=== PATIENT | male | born 1985 | race Caucasian/White ===

== ENCOUNTER 2018-09-04 18:39 | Emergency (ER) | payer OTHER ==
[~2018-09-04] VITALS: Ht 185.4 cm; Wt 95.3 kg
[2018-09-04 18:54] VITALS: BP 127/76
[2018-09-04] MEDS ORDERED: FLUORESCEIN OPTH STRIP 0.6 MG OP ONE (20:00)
[2018-09-04] MEDS ORDERED: TETRACAINE HCL/PF 0.5% OPTH 4 ML BTL OP ONE (20:00)
[2018-09-04 20:45] VITALS: BP 128/74
== END 2018-09-04 20:45 | disposition home or self-care (01) ==
LOC: MED 18:39
DX: S05.01XA Injury of conjunctiva and corneal abrasion without foreign body, right eye, initial encounter (principal); F17.210 Nicotine dependence, cigarettes, uncomplicated; W22.8XXA Striking against or struck by other objects, initial encounter; Y93.89 Activity, other specified; Y92.89 Other specified places as the place of occurrence of the external cause; Y99.8 Other external cause status
CPT/HCPCS: 99283

== ENCOUNTER 2018-11-28 17:53 | Emergency (ER) | payer OTHER ==
[~2018-11-28] VITALS: Ht 190.5 cm; Wt 93.7 kg
[2018-11-28 18:00] VITALS: BP 118/73
--- NOTE | 2018-11-28 19:03 | NUR ---
PATIENT CALLED FROM LOBBY NO ANSWER PATIENT IS LWBS.
== END 2018-11-28 19:03 | disposition left against medical advice (07) ==
LOC: MED 17:53
DX: R55 Syncope and collapse (principal); Z53.21 Procedure and treatment not carried out due to patient leaving prior to being seen by health care provider; W19.XXXA Unspecified fall, initial encounter; Y93.89 Activity, other specified; Y92.89 Other specified places as the place of occurrence of the external cause; Y99.8 Other external cause status

== ENCOUNTER 2019-03-20 10:53 | Emergency (ER) | payer OTHER ==
[~2019-03-20] VITALS: Ht 185.4 cm; Wt 92.3 kg
[2019-03-20 10:56] VITALS: BP 146/86
--- NOTE | 2019-03-20 11:08 | NUR ---
PATIENT PRESENTS TO ED WITH C/O ABDOMINAL PAIN X 2 DAYS . PT REPORTS DRINKING "A LOT LATELY" AND TAKING ECSTASY AND AFTER THAT HIS STOMACH HAS BEEN HURTING. +NAUSEA, VOMITING AND DIARRHEA. PATIENT STATES PAIN OF 8/10 AT THIS TIME; VSS; PATIENT POSITIONED FOR COMFORT; HOB ELEVATED; BEDRAILS UP X1; BED DOWN. PENDING ER MD EVALUATION.
--- NOTE | 2019-03-20 11:10 | NUR ---
DR ROBLES AT BEDSIDE EVALUATING PT.
[2019-03-20] MEDS ORDERED: ONDANSETRON 4 MG/2 ML VIAL IVP ONE (11:15)
[2019-03-20] MEDS ORDERED: NACL 0.9% 1,000 ML IV ONE (11:15)
[2019-03-20] MEDS ORDERED: KETOROLAC 30 MG/ML VIAL IVP ONE (11:15)
[2019-03-20 11:34] LABS: BASOPHILS # (AUTO) 0.1 K/uL (0.00-0.22); BASOPHILS % (AUTO) 0.5 % (0.0-2.0); EOSINOPHILS # (AUTO) 0.1 K/uL (0-0.4); EOSINOPHILS % (AUTO) 0.6 % (0.0-4.0); HEMATOCRIT 43.7 % (36-52); HEMOGLOBIN 14.7 g/dL (12.0-18.0); LYMPHOCYTES # (AUTO) 1.3 K/uL (2.0-11.5); LYMPHOCYTES % (AUTO) 13.2 % (20.5-51.1); MEAN CORPUSCULAR HEMOGLOBIN 31 pg (27-31); MEAN CORPUSCULAR HGB CONC 34 g/dL (33-37); MEAN CORPUSCULAR VOLUME 91.6 fL (80-94); MONOCYTES # (AUTO) 0.7 K/uL (0.8-1.0); NEUTROPHILS # (AUTO) 7.6 K/uL (1.8-7.7); NEUTROPHILS % (AUTO) 78.7 % (42.2-75.2); PLATELET COUNT (AUTO) 302 K/uL (140-450); RED BLOOD CELL COUNT(AUTO) 4.77 MIL/uL (4.20-6.10); RED CELL DISTRIBUTION WIDTH 12.9 % (11.6-13.7); WHITE BLOOD COUNT (AUTO) 9.7 K/uL (4.8-10.8)
[2019-03-20 11:46] LABS: ALBUMIN 3.7 g/dL (3.4-5.0); ANION GAP 12.4 (8-16); CARBON DIOXIDE 28.4 mmol/L (21-32); CREATININE 1.2 mg/dL (0.7-1.3); POTASSIUM 3.8 mmol/L (3.5-5.1); TOTAL BILIRUBIN 0.8 mg/dL (0.0-1.0)
[2019-03-20 12:51] VITALS: BP 139/89
--- NOTE | 2019-03-20 12:51 | NUR ---
Patient discharged with v/s stable. Written and verbal after care instructions given and explained. Patient alert, oriented and verbalized understanding of instructions. Ambulatory with steady gait. All questions addressed prior to discharge. ID band removed;IV removed. Patient advised to follow up with PMD. Rx of Tramadol and zofran given. Patient educated on indication of medication including possible reaction and side effects. Opportunity to ask questions provided and answered.
== END 2019-03-20 12:51 | disposition home or self-care (01) ==
LOC: MED 10:53
DX: A08.4 Viral intestinal infection, unspecified (principal)
CPT/HCPCS: 36415; 74022; 80053; 81002; 83690; 85025; 96361; 96374; 96375; 99284; J1885; J2405; J7030

== ENCOUNTER 2019-03-24 02:53 | Observation (INO) | payer OTHER ==
[~2019-03-24] VITALS: Ht 185.4 cm; Wt 89.4 kg
[2019-03-24 03:00] VITALS: BP 142/80
--- NOTE | 2019-03-24 03:03 | NUR ---
PT AMBLATED TO BED 4.
[2019-03-24] MEDS ORDERED: NACL 0.9% 1,000 ML IV ONE (03:06)
[2019-03-24] MEDS ORDERED: ONDANSETRON 4 MG/2 ML VIAL IVP ONE (03:10)
[2019-03-24] MEDS ORDERED: KETOROLAC 30 MG/ML VIAL IVP ONE (03:10)
--- NOTE | 2019-03-24 03:10 | NUR ---
PT BIB GIRLFRIEND C/O ABD PAIN, N/V/D. PT STATES SYMPTOMS STARTED 4 DAYS AGO, PT WAS SEEN AT [facility] ABOUT 2 DAYS AGO, PT STATES SYMPTOMS HAVE NOT GONE AWAY AND HAVE GOT WORSE. PT STATES 10 ABD PAIN THROUGH OUT, +TENDERNESS; BOWEL SOUNDS ACTIVE THROUGH OUT. SKIN WARM DRY AND INTACT. PT SPEAKING IN CLEAR AND COMPLETE SENTENCES, PT ACTING APPROPRIALTY. DENIES TRAUMA OR INJURY. PT STATES HE DRINK ABOUT A PINT OF VODKA MIXED W/ REDBULL EVERYDAY. --EMESIS AND DIARHHEA PRODUCTION AFTER EATING, NO BLOOD IN STOOL OR EMESIS NOTED BY PT. PT IN GOWN, IN BED; BED IN LOWER LOCKED POSITION, BEDRAILS UP X1. PT ATTACHED TO BEDSIDE SLATE HANDLER. ERMD AWARE OF PT STATUS. PMH: DENIES
[2019-03-24 03:27] LABS: BASOPHILS # (AUTO) 0.1 K/uL (0.00-0.22); BASOPHILS % (AUTO) 0.8 % (0.0-2.0); EOSINOPHILS % (AUTO) 0.4 % (0.0-4.0); HEMATOCRIT 43.8 % (36-52); HEMOGLOBIN 14.8 g/dL (12.0-18.0); LYMPHOCYTES # (AUTO) 1.6 K/uL (2.0-11.5); LYMPHOCYTES % (AUTO) 17.4 % (20.5-51.1); MEAN CORPUSCULAR HEMOGLOBIN 31 pg (27-31); MEAN CORPUSCULAR HGB CONC 34 g/dL (33-37); MEAN CORPUSCULAR VOLUME 91.1 fL (80-94); MONOCYTES # (AUTO) 0.8 K/uL (0.8-1.0); MONOCYTES % (AUTO) 8.6 % (1.7-9.3); NEUTROPHILS # (AUTO) 6.7 K/uL (1.8-7.7); NEUTROPHILS % (AUTO) 72.8 % (42.2-75.2); PLATELET COUNT (AUTO) 315 K/uL (140-450); RED BLOOD CELL COUNT(AUTO) 4.81 MIL/uL (4.20-6.10); RED CELL DISTRIBUTION WIDTH 12.7 % (11.6-13.7); WHITE BLOOD COUNT (AUTO) 9.2 K/uL (4.8-10.8)
[2019-03-24 03:32] LABS: CARBON DIOXIDE 29.1 mmol/L (21-32); CREATININE 1.2 mg/dL (0.7-1.3); POTASSIUM 4.1 mmol/L (3.5-5.1)
[2019-03-24 03:38] LABS: ALBUMIN 3.8 g/dL (3.4-5.0); TOTAL BILIRUBIN 0.9 mg/dL (0.0-1.0)
--- NOTE | 2019-03-24 03:52 | NUR ---
PT BACK IN BED FROM CT, PT STATES PAIN IS STILL 06/28. ERMD AWARE.
[2019-03-24] MEDS ORDERED: MORPHINE SULFATE 2 MG/ML SYR IVP ONE (03:55)
--- NOTE | 2019-03-24 03:55 | NUR ---
PT ENCOURAGED TO PROVIDE URINE SAMPLE, PT STATES HE CAN NOT PEE AT THIS TIME.
--- NOTE | 2019-03-24 04:00 | NUR ---
PT STATES NAUSEA HAS DECREASED, PAIN IS STILL 9/10 AT THIS TIME. ERMD AWARE, ORDERS TO FOLLOW.
--- NOTE | 2019-03-24 04:20 | NUR ---
REPORT PROVIDED TO EVONNE FROM [facility], INSURANCE WOULD LIKE TO ADMIT PT UNDER OBSERVATION. CALL TRANSFERRED TO DR. ROBLES.
[2019-03-24] MEDS ORDERED: NACL 0.9% 1,000 ML IV SCH ×3 (04:33→19:11)
[2019-03-24] MEDS ORDERED: ONDANSETRON 4 MG/2 ML VIAL IM/IVP PRN ×2 (04:35→05:00)
[2019-03-24] MEDS ORDERED: DOCUSATE SODIUM 100 MG GELCAP PO PRN ×2 (04:35→05:00)
[2019-03-24] MEDS ORDERED: MORPHINE SULFATE 2 MG/ML SYR IVP PRN (04:35)
[2019-03-24] MEDS ORDERED: HYDROcodone/APAP 5/325 MG 1 TAB TAB PO PRN (04:35)
[2019-03-24] MEDS ORDERED: ACETAMINOPHEN 325 MG TAB PO PRN ×2 (04:35→05:00)
[2019-03-24 05:00] VITALS: BP 131/90
--- NOTE | 2019-03-24 05:00 | NUR ---
REPORT RECEIVED FROM ED NURSE AT BEDSIDE. PT IN STABLE CONDITION. AAOX4. INTRODUCED SELF TO PT. BOARD UPDATED. NO COMPLAINTS OF PAIN. NO SOB. AFEBRILE. IV SITE L AC 20G RUNNING NS@100ML/HR PATENT AND INTACT. SKIN WARM, DRY, AND INTACT WITH NO OPEN WOUNDS. PT IS AMBULATORY. BED LOCKED IN LOW POSITION. CALL NORTH WITHIN REACH. SAFETY PRECAUTION IN PLACE. ALL NEEDS MET AT THIS TIME.
--- NOTE | 2019-03-24 05:00 | NUR ---
Patient will be admitted to care of Dr. Simpson. Admited to Med-Surg. Patient went to room 112-B via [facility] by RN, patient acting appropriatly; no changes to basline. Belongings list completed. Report to EMANUEL Colon.
--- NOTE | 2019-03-24 05:07 | NUR ---
NS HUNG@100ML/HR.
[2019-03-24] MEDS: PANTOPRAZOLE 40 MG TABEC PO SCH (05:51)
--- NOTE | 2019-03-24 05:51 | NUR ---
PROTONIX GIVEN PO. PT TOLERATED WELL.
[2019-03-24 06:28] LABS: MAGNESIUM 2.1 mg/dL (1.8-2.4); PHOSPHORUS 3.4 mg/dL (2.5-4.9); THYROID STIMULATING HORMONE 0.5 uIU/mL (0.34-3.74)
[2019-03-24] MEDS: HYDROcodone/APAP 5/325 MG 1 TAB TAB PO PRN ×3 (06:45→21:13)
--- NOTE | 2019-03-24 06:45 | NUR ---
NORCO GIVEN FOR BREAKTHROUGH PAIN. PT TOLERATED WELL.
--- NOTE | 2019-03-24 07:28 | NUR ---
REPORT GIVEN TO AM NURSE AT BEDSIDE. PT IN STABLE CONDITION.
--- NOTE | 2019-03-24 07:29 | NUR ---
RECEIVED ENDORSEMENT FROM INSURANCE VERIFICATION CLERK NURSE. PATIENT IS AAOX4, MAURITANIAN SPEAKING. RESPIRATIONS ARE EVEN AND UNLABORED ON ROOM AIR. LEFT AC 20 G INTACT, PATENT, AND INFUSING IVF. PATIENT DENIES ANY PAIN AT THIS TIME. PLAN OF CARE WAS REVIEWED WITH PATIENT. PATIENT VERBALIZED UNDERSTANDING. SAFETY MEASURES IN PLACE, CALL LIGHT WITHIN REACH.
[2019-03-24 08:00] VITALS: BP 149/83
--- NOTE | 2019-03-24 08:00 | NUR ---
PATIENT REFUSED SCDS AT THIS TIME, STATED THAT HE JUST WANTED TO SLEEP.
--- NOTE | 2019-03-24 08:02 | NUR ---
PATIENT HAS BEEN SCREENED AND CATEGORIZED HIGH NUTRITION RISK. PATIENT WILL BE SEEN WITHIN 1-2 DAYS OF ADMISSION. 03/24/19-03/25/[address]
[2019-03-24] MEDS ORDERED: MULTIVITAMIN-12 10 ML, THIAMINE 100 MG, MAGNESIUM SULFATE 50% 2,000 MG, FOLIC ACID 1 MG... IV SCH ×5 (09:00)
[2019-03-24] MEDS ORDERED: DEXT 5% / NACL 0.45% 1,000 ML IV SCH ×2 (09:10→19:11)
[2019-03-24] MEDS: chlordiazePOXIDE 25 MG CAP PO SCH ×3 (09:26→17:05)
--- NOTE | 2019-03-24 09:30 | NUR ---
ADMINISTERED SCHEDULED MEDICATIONS. REMINDED PATIENT THAT URINE AND STOOL SAMPLE IS NEEDED. PATIENT VERBALIZED UNDERSTANDING. DENIES PAIN AT THIS TIME. NO OTHER NEEDS AT THIS TIME.
[2019-03-24] MEDS: MORPHINE SULFATE 2 MG/ML SYR IVP PRN (12:12)
--- NOTE | 2019-03-24 12:15 | NUR ---
ADMINISTERED PRN MORPHINE IVP FOR PAIN 05/28. PATIENT C/O NAUSEA, ADMINISTERED ZOFRAN IVP. ADMINISTERED SCHEDULED MEDICATIONS. NO OTHER NEEDS AT THIS TIME. WILL CONTINUE TO MONITOR. Addendum: 03/24/19 at 1453 by Linda Syed RN WILLIAMS IS PRESENT AT THE BEDSIDE.
[2019-03-24 14:17] LABS: APPEARANCE,URINE CLEAR (CLEAR); BILIRUBIN,URINE 1+ (NEGATIVE); BLOOD, URINE NEGATIVE (NEGATIVE); COLOR,URINE YELLOW (YELLOW); LEUKOCYTE ESTERASE ,URINE NEGATIVE (NEGATIVE); NITRITE, URINE NEGATIVE (NEGATIVE); UGLUCOSE NEGATIVE (NEGATIVE)
[2019-03-24 14:24] LABS: BARBITURATE, URINE NEG. ng/ml (NEG <=200); BENZODIAZEPINE, URINE NEG. ng/mL (NEG <=200); CANNABINOID, URINE POS. ng/mL (NEG <=50); COCAINE, URINE NEG. ng/mL (NEG <=300); OPIATE, URINE POS. ng/mL (NEG <=2000); PHENCYCLIDINE SCREEN,URINE NEG. ng/mL (NEG <=25)
--- NOTE | 2019-03-24 14:43 | NUR ---
03/24/19 RD INITIAL ASSESSMENT COMPLETED PLEASE REFER TO NUTRITION ASSESSMENT UNDER CARE ACTIVITY FOR ESTIMATED NUTRITIONAL NEEDS. 1. CONTINUE NPO MEDICALLY NECESSARY 2. SOBRIETY EDUCATION WAS PROVIDED TO PT 3. RECOMMEND REGULAR DIET WHEN DIET CAN BE ADVANCED 4. RD TO FOLLOW-UP 3-5 DAYS, MODERATE RISK POWER BLOOM RD
--- NOTE | 2019-03-24 14:48 | NUR ---
PATIENT C/O 03/28 PAIN. ADMINISTERED PRN PO NORCO. CHANGED IV PUMP. NO OTHER NEEDS AT THIS TIME.
--- NOTE | 2019-03-24 15:30 | NUR ---
ADMINISTERED SCHEDULED MEDICATIONS. DENIES PAIN AT THIS TIME. NO OTHER NEEDS AT THIS TIME.
[2019-03-24 16:00] VITALS: BP 145/79
--- NOTE | 2019-03-24 19:17 | NUR ---
ENDORSED TO CURBING STONECUTTER NURSE FOR CONTINUITY OF CARE. PATIENT IS STABLE.
--- NOTE | 2019-03-24 19:18 | NUR ---
REPORT RECEIVED FROM AM NURSE AT BEDSIDE. PT IN STABLE CONDITION. AAOX4. INTRODUCED SELF TO PT. BOARD UPDATED. NO COMPLAINTS OF PAIN, PT IS SLEEPING. NO SOB. AFEBRILE. PT IS AMBULATORY. IV SITE L AC 20G RUNNING BANANA BAG@100ML/HR PATENT AND INTACT. SKIN WARM, DRY, AND INTACT WITH NO OPEN WOUNDS. BED LOCKED IN LOW POSITION. CALL NORTH WITHIN REACH. SAFETY PRECAUTION IN PLACE. ALL NEEDS MET AT THIS TIME.
[2019-03-24] MEDS: NACL 0.9% 1,000 ML IV SCH (20:00)
--- NOTE | 2019-03-24 21:13 | NUR ---
NORCO GIVEN FOR 8/10 ABDOMINAL PAIN. PT TOLERATED WELL.
--- NOTE | 2019-03-24 22:30 | NUR ---
PT AWAKE AND ALERT WITH GIRLFRIEND AT BEDSIDE. PT IN STABLE CONDITION.
[2019-03-25] VITALS: BP 142/90
[2019-03-25] MEDS ORDERED: ZOLPIDEM 10 MG TAB PO SCH (01:00)
--- NOTE | 2019-03-25 01:03 | NUR ---
ADMINISTERED AMBIEN MEDICATION ORDERED. PT TOLERATED MEDS WELL. WILL CONTINUE TO MONITOR.
--- NOTE | 2019-03-25 01:30 | NUR ---
PATIENT SLEEPING AT THIS TIME. WILL CONTINUE TO MONITOR.
[2019-03-25] MEDS: MORPHINE SULFATE 2 MG/ML SYR IVP PRN (02:36)
--- NOTE | 2019-03-25 02:36 | NUR ---
CALL LIGHT ANSWERED. PATIENT COMPLAINS OF ABDOMINAL PAIN 05/28. ADMINISTERED MORPHINE. BED IN LOW POSITION, CALL LIGHT WITHIN REACH, SIDE RAILS ARE UP. INSTRUCTED PATIENT TO REPORT ANY SIGNS OF DISTRESS. WILL CONTINUE TO MONITOR PATIENT.
--- NOTE | 2019-03-25 04:00 | NUR ---
PATIENT LYING IN BED APPEARS TO BE SLEEPING UPON CHECKING VITAL SIGNS. REPORTED PAIN MEDICATION TO BE EFFECTIVE. WILL CONTINUE TO MONITOR.
[2019-03-25] MEDS: PANTOPRAZOLE 40 MG TABEC PO SCH (05:44)
--- NOTE | 2019-03-25 05:45 | NUR ---
PATIENT ASLEEP. WOKE UP FOR MEDICATION ADMINISTRATION. MEDICATION TOLERATED WELL.
--- NOTE | 2019-03-25 07:26 | NUR ---
REPORT GIVEN TO AM NURSE AT BEDSIDE. PT IN STABLE CONDITION.
--- NOTE | 2019-03-25 07:27 | NUR ---
RECEIVED ENDORSEMENT FROM BUSINESS PROCESS MODELER NURSE. PATIENT IS AAOX4, NEPALESE SPEAKING. RESPIRATIONS ARE EVEN AND UNLABORED ON ROOM AR. DENIES ANY PAIN AT THIS TIME. LEFT AC 20 G INTACT, PATENT, AND INFUSING IVF. PLAN OF CARE WAS REVIEWED WITH PATIENT. PATIENT VERBALIZED UNDERSTANDING. SAFETY MEASURES IN PLACE, CALL LIGHT WITHIN REACH.
[2019-03-25 07:42] LABS: ANION GAP 12.2 (8-16); CARBON DIOXIDE 25.7 mmol/L (21-32); CREATININE 1.2 mg/dL (0.7-1.3); POTASSIUM 3.9 mmol/L (3.5-5.1)
[2019-03-25 07:48] LABS: MAGNESIUM 2.1 mg/dL (1.8-2.4); PHOSPHORUS 3.4 mg/dL (2.5-4.9)
[2019-03-25 08:00] VITALS: BP 127/87
[2019-03-25 08:04] LABS: BASOPHILS # (AUTO) 0.1 K/uL (0.00-0.22); BASOPHILS % (AUTO) 0.6 % (0.0-2.0); EOSINOPHILS # (AUTO) 0.1 K/uL (0-0.4); HEMATOCRIT 42.4 % (36-52); HEMOGLOBIN 14.2 g/dL (12.0-18.0); LYMPHOCYTES % (AUTO) 20.8 % (20.5-51.1); MEAN CORPUSCULAR HEMOGLOBIN 31 pg (27-31); MEAN CORPUSCULAR HGB CONC 34 g/dL (33-37); MEAN CORPUSCULAR VOLUME 91.4 fL (80-94); MONOCYTES # (AUTO) 0.9 K/uL (0.8-1.0); MONOCYTES % (AUTO) 9.1 % (1.7-9.3); NEUTROPHILS # (AUTO) 6.7 K/uL (1.8-7.7); NEUTROPHILS % (AUTO) 68.5 % (42.2-75.2); PLATELET COUNT (AUTO) 312 K/uL (140-450); RED BLOOD CELL COUNT(AUTO) 4.64 MIL/uL (4.20-6.10); RED CELL DISTRIBUTION WIDTH 12.7 % (11.6-13.7); WHITE BLOOD COUNT (AUTO) 9.8 K/uL (4.8-10.8)
[2019-03-25 08:29] LABS: T4 (THYROXINE) 7.8 ug/dL (4.5-12.0)
[2019-03-25] MEDS ORDERED: FOLIC ACID 1 MG TAB PO SCH (09:00)
[2019-03-25] MEDS ORDERED: THIAMINE 100 MG TAB PO SCH (09:00)
[2019-03-25] MEDS ORDERED: MULTIVITAMIN 1 TAB PO SCH (09:00)
--- NOTE | 2019-03-25 09:50 | NUR ---
ADMINISTERED SCHEDULED MEDICATION. NO DISTRESS NOTED. NO OTHER NEEDS AT THIS TIME.
[2019-03-25] MEDS: chlordiazePOXIDE 25 MG CAP PO SCH (09:55)
[2019-03-25] MEDS: NACL 0.9% 1,000 ML IV SCH (10:18)
--- NOTE | 2019-03-25 11:05 | NUR ---
PATIENT SLEEPING IN BED, EASILY AROUSABLE. DENEIS ANY PAIN. NO OTHER NEEDS AT THIS TIME.
--- NOTE | 2019-03-25 11:45 | NUR ---
GAVE PATIENT A SANDWICH, PATIENT TOLERATED THE FOOD WELL. MADE AWARE.
--- NOTE | 2019-03-25 12:11 | NUR ---
GAVE PATIENT DISCHARGE INSTRUCTIONS. ANSWERED ALL PATIENTS CONCERNS AND QUESTIONS. REMOVED IV, CANNULA INTACT WITH MINIMAL BLEEDING. REMOVED ID BAND. PATIENT AMBULATED OFF UNIT WITH STEADY GAIT. PATIENT STABLE AT TIME OF DISCHARGE.
== END 2019-03-25 12:11 | disposition home or self-care (01) ==
LOC: MED 02:53 → MTU 04:51 → MED 04:52
PROVIDERS: ADMIT General Practice; ATTEND General Practice
DX: A08.4 Viral intestinal infection, unspecified (principal); R11.2 Nausea with vomiting, unspecified; F12.90 Cannabis use, unspecified, uncomplicated; Z72.89 Other problems related to lifestyle
CPT/HCPCS: 36415; 74176; 80048; 80053; 80061; 80305; 81003; 82150; 83036; 83605; 83690; 83735; 84100; 84134; 84436; 84443; 85025; 85610; 85730; 87040; 87081; 96361; 96365; 96366; 96375; 96376; 99285; A9153; G0378; G0482; J1885; J2270; J2405; J3411; J3475; J3490; J7030; 96374

== ENCOUNTER 2022-04-26 10:56 | Emergency (ER) | payer OTHER ==
[~2022-04-26] VITALS: Ht 185.4 cm; Wt 92.6 kg
[2022-04-26 11:10] VITALS: BP 131/78
--- NOTE | 2022-04-26 11:10 | NUR ---
PT AMB TO ER BED 2 W/O ASST
--- NOTE | 2022-04-26 11:13 | NUR ---
Pt coming from home ambulatory with steady gait. Pt c/o abscess on right posterior forearm x4days. C/o that there is pain as well 5/10 constant non-radiating. Pt is A&Ox4. Skin intact. VSS. No chest pain and no sob. Denies n/v. NKA No known medical conditions. No surgeries.
[2022-04-26] MEDS ORDERED: IBUP-2213 PO ×2 (11:22→13:05)
--- NOTE | 2022-04-26 12:04 | NUR ---
Dr. Mahan at bedside examining pt.
[2022-04-26] MEDS ORDERED: cefTRIAXone 1,000 MG VIAL ONE (12:13)
[2022-04-26] MEDS ORDERED: SULF-59 PO (13:05)
[2022-04-26] MEDS ORDERED: CEPH-588 PO (13:05)
[2022-04-26 13:15] VITALS: BP 126/80
--- NOTE | 2022-04-26 13:15 | NUR ---
Patient discharged with v/s stable. Written and verbal after care instructions given and explained. Patient alert, oriented and verbalized understanding of instructions. Ambulatory with steady gait. All questions addressed prior to discharge. ID band removed. Patient advised to follow up with PMD. Rx of KEFLEX,BACTRIM DS given. Patient educated on indication of medication including possible reaction and side effects. Opportunity to ask questions provided and answered.
== END 2022-04-26 13:15 | disposition home or self-care (01) ==
LOC: MED 10:56
DX: L03.113 Cellulitis of right upper limb (principal); R03.0 Elevated blood-pressure reading, without diagnosis of hypertension
CPT/HCPCS: 96365; 99284; J0696

== ENCOUNTER 2022-10-18 01:11 | Emergency (ER) | payer OTHER ==
[~2022-10-18] VITALS: Ht 185.4 cm; Wt 96.2 kg
[~2022-10-18 01:11] MED LIST: CEPH-588 PO; IBUP-2213 PO; SULF-59 PO
[2022-10-18 01:29] VITALS: BP 140/90
--- NOTE | 2022-10-18 01:33 | NUR ---
TO LOBBY A/W BED AMBULATORY
--- NOTE | 2022-10-18 02:39 | NUR ---
TO BED 5 FROM LOBBY
[2022-10-18] MEDS ORDERED: AMOX500C25 PO (03:33)
[2022-10-18] MEDS ORDERED: NAPR-54 PO (03:33)
[2022-10-18] MEDS ORDERED: ACET-8905 PO (03:33)
[2022-10-18] MEDS ORDERED: HYDROcodone/APAP 5/325 MG 1 TAB TAB ONE (03:44)
[2022-10-18] MEDS ORDERED: HYDROcodone/APAP 5/325 MG 1 TAB TAB PO ONE ×2 (03:45)
[2022-10-18 03:46] VITALS: BP 136/88
--- NOTE | 2022-10-18 03:46 | NUR ---
Patient discharged with v/s stable. Written and verbal after care instructions given and explained. Patient alert, oriented and verbalized understanding of instructions. Ambulatory with steady gait. All questions addressed prior to discharge. ID band removed. Patient advised to follow up with PMD. Rx of NORCO, NAPROSYN, AMOXICILLIN given. Patient educated on indication of medication including possible reaction and side effects. Opportunity to ask questions provided and answered.
== END 2022-10-18 03:46 | disposition home or self-care (01) ==
LOC: MED 01:11
DX: K08.89 Other specified disorders of teeth and supporting structures (principal)
CPT/HCPCS: 99283

== ENCOUNTER 2022-10-21 11:10 | Emergency (ER) | payer OTHER ==
[~2022-10-21] VITALS: Ht 185.4 cm; Wt 96.2 kg
[~2022-10-21 11:10] MED LIST changes: +ACET-8905 PO; +AMOX500C25 PO; +NAPR-54 PO
[2022-10-21 11:24] VITALS: BP 106/80
--- NOTE | 2022-10-21 12:00 | NUR ---
37 Y/O MALE C/O LEFT UPPER JAW PAIN AND SWELLING X4DAYS, WAS SEEN IN THE ED ON 10/18 FOR SAME S/S. STATES THAT HE RAN OUT OF ATB AND PAIN MEDS, HAS SCHEDULED AN APT WITH DENTIST NEXT WEEK. NO JAW SWELLING, SOB NOTED. pmh: denies nka med: antibiotic (finished)
--- NOTE | 2022-10-21 12:56 | NUR ---
PA ANAYA AT PT SIDE FOR EVAL
[2022-10-21] MEDS ORDERED: ACET-8905 PO (13:14)
[2022-10-21] MEDS ORDERED: BENZ20GE11 MM (13:14)
[2022-10-21] MEDS ORDERED: AMOX1TAB8 PO (13:14)
--- NOTE | 2022-10-21 13:20 | NUR ---
Patient discharged with v/s stable. Written and verbal after care instructions given and explained. Patient alert, oriented and verbalized understanding of instructions. Ambulatory with steady gait. All questions addressed prior to discharge. ID band removed. Patient advised to follow up with PMD. Rx of AMOXICILLIN, [id number], ORAJEL 3X given. Patient educated on indication of medication including possible reaction and side effects. Opportunity to ask questions provided and answered.
== END 2022-10-21 13:20 | disposition home or self-care (01) ==
LOC: MED 11:10
DX: K04.7 Periapical abscess without sinus (principal)
CPT/HCPCS: 99283